=== PATIENT | male | born 1985 | race Caucasian/White ===

== ENCOUNTER 2021-10-30 22:06 | Emergency (ER) | payer OTHER ==
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
[2021-10-30 22:39] VITALS: BP 131/68; PULSE 108
[2021-10-30 23:10] VITALS: O2SAT 96
== END 2021-10-30 22:43 | disposition home or self-care (01) ==
LOC: ED 22:06
DX: Z04.1 Encounter for examination and observation following transport accident (principal); F10.120 Alcohol abuse with intoxication, uncomplicated
CPT/HCPCS: 99283

== ENCOUNTER 2024-05-01 16:29 | Emergency (ER) | payer SELFPAY ==
[2024-05-01 17:50] VITALS: BP 157/103; RESP 20; TEMP 98.5; O2SAT 96
[2024-05-01] MEDS: XYLOCAINE 1% HCL 20 ML MDV IJ ONE (18:34)
--- NOTE | 2024-05-01 19:01 | ERPHSYRPT ---
- History of Present Illness Time Seen by Provider: 05/01/24 18:30 Source: patient Exam Limitations: no limitations Patient Subjective Stated Complaint: Abscess Triage Nursing Assessment: Patient ambulated back to ED and transferred self to bed. Patient A+O X3. Patient's skin pink, warm and dry. Patient complains of abscess to crack of buttocks. Patient states he has abscess for one week. Abscess noted to crack of buttock. Patient complains of pain 5/10. Physician History: 38-year-old male presents to our ED with a pilonidal abscess. Patient had a pilonidal abscess about 8 years ago. It was incised and drained. Patient not has a reoccurrence. Symptoms have been progressive over the past several days. Patient has pain when he sits. No associated fever. No trauma. No nausea no vomiting. No lymphadenopathy. Patient symptoms are localized to the superior aspect of the gluteal cleft. Patient otherwise feels well. He denies trauma he voices no other complaints or concerns at this time. Portions of this note were created with voice recognition technology. There may be grammatical, spelling, punctuation or sound alike errors Timing/Duration: today Severity: moderate Modifying Factors: Improves With: nothing Associated Symptoms: denies symptoms Allergies/Adverse Reactions: diphenhydramine HCl [From Benadryl] Allergy (Mild, Verified 05/01/24 17:40) Hx Tetanus, Diphtheria Vaccination/Date Given: Yes Hx Influenza Vaccination/Date Given: No Hx Pneumococcal Vaccination/Date Given: No Immunizations Up to Date: Yes Travel Risk - International Travel Have you traveled outside of the country in past 3 weeks: No - Emerging Infectious Disease Are you exhibiting symptoms associated with any current EIDs: No - Review of Systems Constitutional: No Symptoms, No Fever, No Chills Eyes: No Symptoms Ears, Nose, & Throat: No Symptoms Respiratory: No Symptoms, No Cough, No Dyspnea Cardiac: No Symptoms, No Chest Pain, No Edema, No Syncope Abdominal/Gastrointestinal: No Symptoms, No Abdominal Pain, No Nausea, No Vomiting, No Diarrhea Genitourinary Symptoms: No Symptoms, No Dysuria Musculoskeletal: No Symptoms, No Back Pain, No Neck Pain Skin: No Symptoms, No Rash Neurological: No Symptoms, No Dizziness, No Focal Weakness, No Sensory Changes Psychological: No Symptoms Endocrine: No Symptoms Hematologic/Lymphatic: No Symptoms Immunological/Allergic: No Symptoms All Other Systems: Reviewed and Negative - Past Medical History Pertinent Past Medical History: No Neurological History: No Pertinent History ENT History: No Pertinent History Cardiac History: No Pertinent History Respiratory History: No Pertinent History Endocrine Medical History: No Pertinent History Musculoskeletal History: Fractures GI Medical History: No Pertinent History History: No Pertinent History Psycho-Social History: No Pertinent History Male Reproductive Disorders: No Pertinent History Other Medical History: States only medical history is a broken collar bone that did not require surgery years ago. - Past Surgical History Past Surgical History: Yes Other Surgical History: Denies any surgeries in his past - Social History Smoking Status: Current every day smoker How long have you smoked: years Exposure to second hand smoke: Yes Drug Use: none Patient Lives Alone: No - Social Determinants of Health Will the patient participate in the screening: Yes Do you worry about a steady place to live?: No Do you have any problems with any of the following?: No known problems In the past 12 months,have you had to go without utilities?: No Transportation Issues: No Has anyone in your support network made you feel unsafe?: No Have you or anyone in your house had to go without enough: No - Nursing Vital Signs Nursing Vital Signs: Initial Vital Signs Temperature 98.5 F 05/01/24 17:41 Pulse Rate 98 H 05/01/24 17:41 Respiratory Rate 20 05/01/24 17:41 Blood Pressure 157/103 05/01/24 17:41 O2 Sat by Pulse Oximetry 96 05/01/24 17:41 Pain Scale Pain Intensity 5 - Physical Exam General Appearance: no apparent distress, alert Eye Exam: PERRL/EOMI, eyes nml inspection Ears, Nose, Throat Exam: normal ENT inspection, moist mucous membranes Neck Exam: normal inspection, full range of motion Respiratory Exam: normal breath sounds, lungs clear, airway intact, No respiratory distress Cardiovascular Exam: regular rate/rhythm Gastrointestinal/Abdomen Exam: soft, normal bowel sounds, No tenderness, No mass Back Exam: normal inspection, normal range of motion, other (3 cm pilonidal cyst), No CVA tenderness, No vertebral tenderness Extremity Exam: normal inspection, normal range of motion, pelvis stable Neurologic Exam: alert, oriented x 3, cooperative, normal mood/affect, nml cerebellar function, nml station & gait, sensation nml, No motor deficits Skin Exam: normal color, warm, dry, No rash Lymphatic Exam: No adenopathy SpO2 Interpretation: normal SpO2: 96 O2 Delivery: Room Air Procedures - Incision and Drainage Time of Procedure: 19:00 Timeout: Performed Site: Superior aspect of gluteal cleft, pilonidal abscess Anesthesia: 1% Lidocaine cc's of anesthesia: 5 Blade Size: 11 I & D Procedure: betadine prep, sterile drapes applied, sterile dressing applied, culture obtained, other (Abscess packed with sterile gauze) Results: large amount pus Progress: Patient tolerated procedure well. No intra or postprocedural complications. Patient neurovascular tact distally post procedure - Course Nursing assessment & vital signs reviewed: Yes Ordered Tests: Active Orders 24 hr Category Date Time Status CULTURE,WOUND Stat Lab 05/01/24 18:44 Ordered Medication Summary Discontinued Medications Generic Name Dose Route Start Last Admin Trade Name Freq PRN Reason Stop Dose Admin Lidocaine HCl 10 ml 05/01/24 18:32 05/01/24 18:34 Lidocaine Hcl 1% 20 Ml Mdv 20 Ml Ml IJ 05/01/24 18:33 10 ml STAT ONE Administration - Progress Progress: improved Progress Note: In light of the recurrence I spoke to Dr. Magdiel Brothers. He advised to drain the abscess and have patient follow-up in his office. I spoke to Dr. Magdiel Brothers at 6:30 PM. He advised draining the wound. And follow-up with him as an outpatient. Culture sent results pending. Patient agrees to follow-up with Dr. Brothers in the morning. Portions of this note were created with voice recognition technology. There may be grammatical, spelling, punctuation or sound alike errors Complexity of problem addressed is moderate acute complicated. No critical care time. Complexity of data reviewed is none. No specialized testing ordered. Diagnosis made based on history and physical exam. Risk of complication and or risk of morbidity/mortality of patient management is moderate. Patient received a prescription for Toradol [place] and Bactrim. Toradol Bactrim during our ED. Vital stable. Time spent to discharge patient approximately 20 minutes. Plan of care established for shared decision making. No social determinants of health present to impede follow-up. Portions of this note were created with voice recognition technology. There may be grammatical, spelling, punctuation or sound alike errors 05/01/24 19:11 Counseled pt/family regarding: diagnosis, need for follow-up - Departure Departure Disposition: Home Clinical Impression: Pilonidal cyst Condition: Stable Critical Care Time: No Referrals: ÁLVARO FLANAGAN [Primary Care Provider] - Follow up/PCP as directed DYAN BROTHERS MD [ACTIVE STAFF] - Follow up/PCP as directed Additional Instructions: Discharge/Care Plan REYES CURRAN was seen on 05/01/24 in the Emergency Room. The patient was counseled regarding Diagnosis,Lab results, Imaging studies, need for follow up and when to return to the Emergency Room. Prescriptions given: Discharge Note I have spoken with the patient and/or caregivers. I have explained the patient's condition, diagnosis and treatment plan based on the information available to me at this time. I have answered the patient's and/or caregiver's questions and addressed any concerns. The patient and/or caregivers have as good understanding of the patient's diagnosis, condition and treatment plan as can be expected at this point. The vital signs have been stable. The patient's condition is stable and appropriate for discharge from the emergency department. The patient will pursue further outpatient evaluation with the primary care physician or other designated or consulting physician as outlined in the discharge instructions. The patient and/or caregivers are agreeable to this plan of care and follow-up instructions have been explained in detail. The patient and/or caregivers have received these instruction. The patient/and or caregivers are aware that any significant change in condition or worsening of symptoms should prompt an immediate return to this or the closest emergency department or call 911. Prescriptions: Hydrocodone/APAP 5/325 [[place] 5/325 mg] 1 each PO Q6H PRN PRN #10 tablet MDD 4 PRN Reason: Pain Smz/Tmp Ds Tablet [Bactrim Ds Tablet] 1 udtab PO BID #14 tablet Ketorolac Trometh 10 mg Tab [TORAdol 10 MG TABLET] 10 mg PO TID 5 Days #15 tablet
[2024-05-01] MEDS ORDERED: BACTRIM DS TABLET PO ONE (19:02)
[2024-05-01] MEDS: TORAdol 30 mg Injection IM ONE (19:02)
[2024-05-01] MEDS: BACTRIM DS TABLET PO STA (19:03)
[2024-05-01] MEDS ORDERED: NORCO 5/325 MG ONE (19:05)
[2024-05-01] MEDS: NORCO 5/325 MG PO ONE (19:06)
[2024-05-01 19:12] VITALS: PULSE 88
== END 2024-05-01 19:12 | disposition home or self-care (01) ==
LOC: ED 16:29
DX: L05.01 Pilonidal cyst with abscess (principal); Z79.891 Long term (current) use of opiate analgesic; Z79.899 Other long term (current) drug therapy; Z72.0 Tobacco use
CPT/HCPCS: 10080; 87070; 96372; 99283; A9270-GY